=== PATIENT | female | born 2000 | race Two or more races ===

== ENCOUNTER 2024-06-25 05:26 | Emergency (ER) | payer SELFPAY ==
[2024-06-25] MEDS: Acetaminophen 500 MG Tab PO ONE (06:02)
== END 2024-06-25 06:14 | disposition home or self-care (01) ==
LOC: JP.ED 05:26
DX: F32.0 Major depressive disorder, single episode, mild (principal); Z79.899 Other long term (current) drug therapy
CPT/HCPCS: 99284; A9270